=== PATIENT | female | born 1985 | race Hispanic/Latino ===

== ENCOUNTER 2020-10-12 09:00 | Outpatient (RCR) | payer OTHER, MEDICAID, SELFPAY ==
--- NOTE | 2020-09-22 12:33 | PT.OIE ---
Current Diagnoses Cervicalgia (09/22/20) Visit Care Team Role Provider Type Jeni Mendoza MD Attending Provider Non-Staff Primary Care Provider Referring Provider Specialty: Family Practice Address: [address], [place], [address] Email: Physical Therapy Initial Evaluation PT-OP-A Visit Information Start: 09/22/20 12:05 Freq: Status: Active Protocol: Document 09/22/20 12:05 (Rec: 09/22/20 12:33 [email or web address]) Out-Patient Physical Therapy Visit Information Visit Information Visit Type Initial Evaluation Visit Start Time 11:15 Visit Stop Time 12:00 Total Visit Minutes 45 Visit Number 1/ Number of HEAVY EQUIPMENT OPERATOR/PAVER Visits 0 Evaluation Information Evaluation Date 09/22/20 Precautions Precautions Pt is on chemotherapy for her Chronic myeloid leukemia PT-OP-B Current Condition Start: 09/22/20 12:05 Freq: Status: Active Protocol: Document 09/22/20 12:05 (Rec: 09/22/20 12:33 [email or web address]) Current Condition History of Current Condition Onset Date 2 months ago Current Complaints L sided neck pain, radiating pt to midback History of Current Condition Kalee is a 35 yo female here for her new onset of L sided neck pain started 2 months ago . She noticed that she got a lump on L neck and was wondering if that's related to her chemotherapy but her oncologist already ruled out that after ultrasound assessment. Pt reports she has low grade neck pain 2/10, along with occasional radiating pain to below her L scapula and L shoulder. She has difficulty turning her head to L while driving, reading for a long period of time, sleeping on her R side and pressure against that area from the seat belt. Denies tingling, numbness and weakness. She does has night cramps on her L arm and hand occasionally. Besides, pt was diagonsed with Chronic myeloid leukemia 7 months ago and she is currently on Imatinib 400mg for chemotherapy. She is not working at this point d/t her knee injury from 2 years (had othroscopic surgery last year). Current Functional Impairments (Reported) Functional Limitations- ADL's pain with head turns to L while driving, reading for a long period of time Personal Factors Other Personal Factors That May Effect Pt is on chemotherapy for her Therapy/Recovery Chronic myeloid leukemia PT-OP-C Subjective Start: 09/22/20 12:05 Freq: Status: Active Protocol: Document 09/22/20 12:05 (Rec: 09/22/20 12:33 [email or web address]) Patient Questionnaires Neck Disability Index NDI Score 14 Neck Disability Index Impairment 20 to 39% Impaired (Score 10- 19) Quick Dash- Upper Extremity Quick Dash UE Score 11.36 Quick Dash UE Impairment 1 to 19% Impaired (Score 1-19) OP-PT Pain Assessment Location neck pain Pain Location Details L sided parapinals, Intensity 2 Scale Used Numeric (0 - 10) Description Aching,Pinching,Pressure Frequency Frequent Pain Aggravating Factors Position,Changing Position,ADL 's,Activity,Exercise Pain Alleviating Factors Inactivity,Lying Supine PT-OP-F Manual Assessment Start: 09/22/20 12:05 Freq: Status: Active Protocol: Document 09/22/20 12:05 (Rec: 09/22/20 12:33 [email or web address]) Manual Assessments Soft Tissue Assessment Soft Tissue Mobility Assessment hypertonicity noted at L lower cervical parapsinals C5-C7, levator scap and upper trap Joint Mobility Assessment Joint Mobility Assessment hypomobile T/S (T1-T5) angulation at C5 with extension, dowager hump at CT junction PT-OP-H Neuro Start: 09/22/20 12:05 Freq: Status: Active Protocol: Document 09/22/20 12:05 (Rec: 09/22/20 12:33 [email or web address]) Sensation Evaluation Gross Sensation Gross Sensation WNL Deep Tendon Reflex & Clonus Assessment Deep Tendon Reflex Bilateral Bicep Deep Tendon Reflex 2+ Normal Bilateral Tricep Deep Tendon Reflex 2+ Normal Bilateral Brachioradialis Deep Tendon Reflex 2+ Normal PT-OP-J Posture/Palpation/Skin Start: 09/22/20 12:05 Freq: Status: Active Protocol: Document 09/22/20 12:05 (Rec: 09/22/20 12:33 [email or web address]) Posture Evaluation Position Standing Evaluation View Lateral Head/C-Spine Posture Side Bent Left,Forward Head T-Spine Posture Increased Kyphosis PT-OP-K Range of Motion Start: 09/22/20 12:05 Freq: Status: Active Protocol: Document 09/22/20 12:05 (Rec: 09/22/20 12:33 [email or web address]) Cervical Spine Range of Motion Cervical Spine Active Degrees Testing Position Sitting Flexion 55 Extension 65 Rotation Left 45 Rotation Right 58 Lateral Flexion Left 33 Lateral Flexion Right 28 ROM Limitations Soft Tissue Tightness,Muscle Tone,Pain Comments C5C6 pinching pain + radiating scapular pain with extension with overhead pressure, angulation noted. pulling/stretching sensation at Lside during SB to R Lumbar Spine Range of Motion Lumbar Spine Active Degrees Comments WFL PT-OP-L Special Tests Start: 09/22/20 12:05 Freq: Status: Active Protocol: Document 09/22/20 12:05 (Rec: 09/22/20 12:33 [email or web address]) Special Tests Cervical Spine Special Tests Upper Limb Tension Test Test Results -ve Traction Test Results +VE Comments relief noted Spurling's Test Test Results +VE L Comments C5C6 pinching pain + radiating scapular pain Foraminal Compression Test Results +VE L Comments C5C6 pinching pain + radiating scapular pain PT-OP-Q Treatments Start: 09/22/20 12:05 Freq: Status: Active Protocol: Document 09/22/20 12:05 (Rec: 09/22/20 12:33 [email or web address]) Therapeutic Exercises Sitting Exercises levator scap stretch Sitting Exercise Name nose to armpit' Side left Reps/Minutes 10 sec hold x 5 Comments for HEP, Manual Therapy Treatment Manual Traction cervical traction Body Position Hooklying Reps/Duration 10 sec x 5 Comments pt report neck pain relief PT-OP-T Assessment and Plan Start: 09/22/20 12:05 Freq: Status: Active Protocol: Document 09/22/20 12:05 (Rec: 09/22/20 12:33 [email or web address]) Physical Therapy Assessment Rehab Potential Rehabilitation Potential Excellent Evaluation Complexity Number of Personal Factors/Comorbidities 1-2 Number of Body Systems Impaired 1-2 Clinical Presentation at Evaluation Stable Impairments Impairments Activity Tolerance,Balance, Functional Activities, Functional Mobility,Pain, Posture,ROM,Soft Tissue Mobility,Strength Other Concerns Barriers to Rehabilitation Pt is on chemotherapy for her Chronic myeloid leukemia (7 months ) Goals HEP Impairment pt does not have a HEP Short Term Goal (STG) pt will be compliant to complete HEP safely and independently STG Duration 3 weeks activity tolerance Impairment unable to read d/t fatigue and pain Short Term Goal (STG) pt will be show improved neck stability and strength to be able to hold supine deep cervical flexion >20 seconds STG Duration 3 weeks Drawer Upfitter Goal (LTG) pt will be show improved neck stability and strength to be able to hold supine deep cervical flexion >30 seconds, which allows her to read in upright position LTG Duration 6 weeks ROM Impairment pt shows limited cervical AROM d/t pain Short Term Goal (STG) pt will show > 10 degrees of cervical AROM without increase in pain STG Duration 3 weeks Drawer Upfitter Goal (LTG) pt will show > 20 degrees of cervical AROM in all planes without increase in neck pain in order for her to be able to sleep at night and turn while driving LTG Duration 6 weeks Assessment Summary Assessment Kalee is a 35 yo female here for her L sided neck pain. Upon assessment, pt presents symptoms of mild cervical radiculapthy instead of chemotherapy related side effects. I did recommend pt to address her lumps at cervical region with her new oncologist if needed. Upon assessment, pt shows limited thoracic mobility but excessive mobility C5-C7 ( dowager hump and movement angulation) which significantly affects her cervical stability and nerve root pressure. Pt will benefit from skilled therapy to address aforementioned impairments in order for her to function without pain ( driving, sleeping and reading) Physical Therapy Plan Frequency and Duration Frequency of Treatment 1x/Week Duration of Treatment 6 weeks Plan of Care Start Date 09/22/20 Plan of Care End Date 11/06/20 Next Visit Focus/Plan Next Note Type Treatment Note Next Visit Plan traction check stability chest stretch neck stretch chin tuck
--- NOTE | 2020-09-22 12:33 | PT.OPPOC ---
Physical, Occupational & Speech Therapy At [facility] Current Diagnoses Cervicalgia (09/22/20) Visit Care Team Role Provider Type Jeni Mendoza MD Attending Provider Non-Staff Primary Care Provider Referring Provider Specialty: Family Practice Address: [address] , [place], [address] Email: Plan Of Care PT-OP-T Assessment and Plan Start: 09/22/20 12:05 Freq: Status: Active Protocol: Document 09/22/20 12:05 (Rec: 09/22/20 12:33 [email or web address]) Physical Therapy Assessment Rehab Potential Rehabilitation Potential Excellent Evaluation Complexity Number of Personal Factors/Comorbidities 1-2 Number of Body Systems Impaired 1-2 Clinical Presentation at Evaluation Stable Impairments Impairments Activity Tolerance,Balance, Functional Activities, Functional Mobility,Pain, Posture,ROM,Soft Tissue Mobility,Strength Other Concerns Barriers to Rehabilitation Pt is on chemotherapy for her Chronic myeloid leukemia (7 months ) Goals HEP Impairment pt does not have a HEP Short Term Goal (STG) pt will be compliant to complete HEP safely and independently STG Duration 3 weeks activity tolerance Impairment unable to read d/t fatigue and pain Short Term Goal (STG) pt will be show improved neck stability and strength to be able to hold supine deep cervical flexion >20 seconds STG Duration 3 weeks Correction Goal (LTG) pt will be show improved neck stability and strength to be able to hold supine deep cervical flexion >30 seconds, which allows her to read in upright position LTG Duration 6 weeks ROM Impairment pt shows limited cervical AROM d/t pain Short Term Goal (STG) pt will show > 10 degrees of cervical AROM without increase in pain STG Duration 3 weeks Correction Goal (LTG) pt will show > 20 degrees of cervical AROM in all planes without increase in neck pain in order for her to be able to sleep at night and turn while driving LTG Duration 6 weeks Assessment Summary Assessment Kalee is a 35 yo female here for her L sided neck pain. Upon assessment, pt presents symptoms of mild cervical radiculapthy instead of chemotherapy related side effects. I did recommend pt to address her lumps at cervical region with her new oncologist if needed. Upon assessment, pt shows limited thoracic mobility but excessive mobility C5-C7 ( dowager hump and movement angulation) which significantly affects her cervical stability and nerve root pressure. Pt will benefit from skilled therapy to address aforementioned impairments in order for her to function without pain ( driving, sleeping and reading) Physical Therapy Plan Frequency and Duration Frequency of Treatment 1x/Week Duration of Treatment 6 weeks Plan of Care Start Date 09/22/20 Plan of Care End Date 11/06/20 Next Visit Focus/Plan Next Note Type Treatment Note Next Visit Plan traction check stability chest stretch neck stretch chin tuck Plan of Care Dates Plan of Care Start Date 09/22/20 Plan of Care End Date 11/06/20 Electronically Signed by: Georgia Doherty, PT 09/22/20 [id number] Please Sign and Return: I have reviewed this Plan of Care and certify that the skilled therapy services above are required to meet the patient?s needs. Physician Signature Date Printed Name and Credentials Clinical Instructor Signature Printed Name and Credentials
--- NOTE | 2020-09-24 09:51 | PT.OTN ---
Current Diagnoses Cervicalgia (09/24/20) Physical Therapy Treatment Note PT-OP-A Visit Information Start: 09/22/20 12:05 Freq: Status: Active Protocol: Document 09/24/20 09:06 SP (Rec: 09/24/20 11:43 SP [id number]) Out-Patient Physical Therapy Visit Information Visit Information Visit Type Treatment Note Visit Start Time 09:06 Visit Stop Time 09:51 Total Visit Minutes 45 Visit Number 2/9 Number of CAMPGROUND HAND Visits 1 Evaluation Information Evaluation Date 09/22/20 Precautions Precautions Pt is on chemotherapy for her Chronic myeloid leukemia PT-OP-B Current Condition Start: 09/22/20 12:05 Freq: Status: Active Protocol: Document 09/22/20 12:05 HH (Rec: 09/22/20 12:33 HH [email or web address]) Current Condition History of Current Condition Onset Date 2 months ago Current Complaints L sided neck pain, radiating pt to midback History of Current Condition Kalee is a 35 yo female here for her new onset of L sided neck pain started 2 months ago . She noticed that she got a lump on L neck and was wondering if that's related to her chemotherapy but her oncologist already ruled out that after ultrasound assessment. Pt reports she has low grade neck pain 2/10, along with occasional radiating pain to below her L scapula and L shoulder. She has difficulty turning her head to L while driving, reading for a long period of time, sleeping on her R side and pressure against that area from the seat belt. Denies tingling, numbness and weakness. She does has night cramps on her L arm and hand occasionally. Besides, pt was diagonsed with Chronic myeloid leukemia 7 months ago and she is currently on Imatinib 400mg for chemotherapy. She is not working at this point d/t her knee injury from 2 years (had othroscopic surgery last year). Current Functional Impairments (Reported) Functional Limitations- ADL's pain with head turns to L while driving, reading for a long period of time Personal Factors Other Personal Factors That May Effect Pt is on chemotherapy for her Therapy/Recovery Chronic myeloid leukemia PT-OP-C Subjective Start: 09/22/20 12:05 Freq: Status: Active Protocol: Document 09/24/20 09:06 SP (Rec: 09/24/20 11:43 SP [id number]) OP-PT Subjective Patient Comments Patient Comments Pt stated noticed a swollen pocked over L mid to distal clavicle and showed her oncologist but he was not concerned, althought little worried. Pt reported doing ok otherwise, no adverse reactions felt good after last tx. PT-OP-F Manual Assessment Start: 09/22/20 12:05 Freq: Status: Active Protocol: Document 09/22/20 12:05 (Rec: 09/22/20 12:33 [email or web address]) Manual Assessments Soft Tissue Assessment Soft Tissue Mobility Assessment hypertonicity noted at L lower cervical parapsinals C5-C7, levator scap and upper trap Joint Mobility Assessment Joint Mobility Assessment hypomobile T/S (T1-T5) angulation at C5 with extension, dowager hump at CT junction PT-OP-H Neuro Start: 09/22/20 12:05 Freq: Status: Active Protocol: Document 09/22/20 12:05 (Rec: 09/22/20 12:33 [email or web address]) Sensation Evaluation Gross Sensation Gross Sensation WNL Deep Tendon Reflex & Clonus Assessment Deep Tendon Reflex Bilateral Bicep Deep Tendon Reflex 2+ Normal Bilateral Tricep Deep Tendon Reflex 2+ Normal Bilateral Brachioradialis Deep Tendon Reflex 2+ Normal PT-OP-J Posture/Palpation/Skin Start: 09/22/20 12:05 Freq: Status: Active Protocol: Document 09/22/20 12:05 (Rec: 09/22/20 12:33 [email or web address]) Posture Evaluation Position Standing Evaluation View Lateral Head/C-Spine Posture Side Bent Left,Forward Head T-Spine Posture Increased Kyphosis PT-OP-K Range of Motion Start: 09/22/20 12:05 Freq: Status: Active Protocol: Document 09/22/20 12:05 (Rec: 09/22/20 12:33 [email or web address]) Cervical Spine Range of Motion Cervical Spine Active Degrees Testing Position Sitting Flexion 55 Extension 65 Rotation Left 45 Rotation Right 58 Lateral Flexion Left 33 Lateral Flexion Right 28 ROM Limitations Soft Tissue Tightness,Muscle Tone,Pain Comments C5C6 pinching pain + radiating scapular pain with extension with overhead pressure, angulation noted. pulling/stretching sensation at Lside during SB to R Lumbar Spine Range of Motion Lumbar Spine Active Degrees Comments WFL PT-OP-L Special Tests Start: 09/22/20 12:05 Freq: Status: Active Protocol: Document 09/22/20 12:05 HH (Rec: 09/22/20 12:33 HH [email or web address]) Special Tests Cervical Spine Special Tests Upper Limb Tension Test Test Results -ve Traction Test Results +VE Comments relief noted Spurling's Test Test Results +VE L Comments C5C6 pinching pain + radiating scapular pain Foraminal Compression Test Results +VE L Comments C5C6 pinching pain + radiating scapular pain PT-OP-Q Treatments Start: 09/22/20 12:05 Freq: Status: Active Protocol: Document 09/24/20 09:06 SP (Rec: 09/24/20 11:43 SP [id number]) Therapeutic Exercises Supine Exercises TS ext and pec stretch over towel roll Supine Exercise Name arms as side then into ABD 90* stretch, OH reach pain free range Side bilateral Resistance AROM Equipment Used towel roll under Mid TS Reps/Minutes 2 min total Comments good tolerance pain free range scap retraction/ depresion Side bilateral Reps/Minutes 5 sech hold x10 Comments cued slow gentle fluid movement activation DNF Supine Exercise Name chin tuck Reps/Minutes 5 sec hold x10 Comments cued slow gentle fluid movement activation Sidelying Exercises open book Side bilateral Reps/Minutes x5 Comments pinching Lateral neck to stopped- hold for now. Sitting Exercises levator scap stretch Sitting Exercise Name nose to armpit' Side left Reps/Minutes 10 sec hold x 5 Comments reviewed Standing Exercises scalene stretch Standing Exercise Name hand over clavicle, SB opposite side and look toward ceiling pain free rang Side bilateral Resistance added to HEP Reps/Minutes 20 Comments good feedback response, aware caution on L 2* swelling. racquetball roll at wall Standing Exercise Name interscap muscles- added to HEP Equipment Used racquetball in sock Reps/Minutes 1 min Comments good feedback response- this feels good. Manual Therapy Treatment Soft Tissue Mobilization STMs Body Location suboccipitals, lev scap, UT, suboccipital release, SCM Mobilization Type Myofascial Release,Sustained Pressure,Other Intensity/Depth Moderate Body Position Supine Comments Good feedback response it feels good, I might fall asleep. Manual Traction cervical traction Body Position Hooklying Reps/Duration 30 x3 Comments pt report neck pain relief PT-OP-T Assessment and Plan Start: 09/22/20 12:05 Freq: Status: Active Protocol: Document 09/24/20 09:06 SP (Rec: 09/24/20 11:43 SP [id number]) Physical Therapy Assessment Goals HEP Impairment pt does not have a HEP Short Term Goal (STG) pt will be compliant to complete HEP safely and independently STG Duration 3 weeks activity tolerance Impairment unable to read d/t fatigue and pain Short Term Goal (STG) pt will be show improved neck stability and strength to be able to hold supine deep cervical flexion >20 seconds STG Duration 3 weeks Manufacturing Electrician Goal (LTG) pt will be show improved neck stability and strength to be able to hold supine deep cervical flexion >30 seconds, which allows her to read in upright position LTG Duration 6 weeks ROM Impairment pt shows limited cervical AROM d/t pain Short Term Goal (STG) pt will show > 10 degrees of cervical AROM without increase in pain STG Duration 3 weeks [facility] Goal (LTG) pt will show > 20 degrees of cervical AROM in all planes without increase in neck pain in order for her to be able to sleep at night and turn while driving LTG Duration 6 weeks Assessment Summary Assessment Pt tolerated tx well, HEP review and initiated scalene stretch, chin tuck, TS ext and pec stretch over towel roll and STMs racquetball roll inter scap at wall with report little looser. Suggested using CP for swelling at home. Reassess swelling over L mid- distal clavicle next tx. Physical Therapy Plan Frequency and Duration Frequency of Treatment 1x/Week Duration of Treatment 6 weeks Plan of Care Start Date 09/22/20 Plan of Care End Date 11/06/20 Next Visit Focus/Plan Next Note Type Treatment Note Next Visit Plan Assess manual and self STMs, additions to HEP see Assessment. Next tx: add cervical rotations and possible SNAGS w / towel PT POC: traction check stability chest stretch neck stretch chin tuck
--- NOTE | 2020-09-30 13:46 | PT.OTN ---
Current Diagnoses Cervicalgia (09/30/20) Physical Therapy Treatment Note PT-OP-A Visit Information Start: 09/22/20 12:05 Freq: Status: Active Protocol: Document 09/30/20 13:01 (Rec: 09/30/20 13:46 [id number]) Out-Patient Physical Therapy Visit Information Visit Information Visit Type Treatment Note Visit Start Time 13:00 Visit Stop Time 13:53 Total Visit Minutes 53 Visit Number 3/9 Number of LABORER HEADING Visits 0 PT-OP-B Current Condition Start: 09/22/20 12:05 Freq: Status: Active Protocol: Document 09/22/20 12:05 HH (Rec: 09/22/20 12:33 [email or web address]) Current Condition History of Current Condition Onset Date 2 months ago Current Complaints L sided neck pain, radiating pt to midback History of Current Condition Kalee is a 35 yo female here for her new onset of L sided neck pain started 2 months ago . She noticed that she got a lump on L neck and was wondering if that's related to her chemotherapy but her oncologist already ruled out that after ultrasound assessment. Pt reports she has low grade neck pain 2/10, along with occasional radiating pain to below her L scapula and L shoulder. She has difficulty turning her head to L while driving, reading for a long period of time, sleeping on her R side and pressure against that area from the seat belt. Denies tingling, numbness and weakness. She does has night cramps on her L arm and hand occasionally. Besides, pt was diagonsed with Chronic myeloid leukemia 7 months ago and she is currently on Imatinib 400mg for chemotherapy. She is not working at this point d/t her knee injury from 2 years (had othroscopic surgery last year). Current Functional Impairments (Reported) Functional Limitations- ADL's pain with head turns to L while driving, reading for a long period of time Personal Factors Other Personal Factors That May Effect Pt is on chemotherapy for her Therapy/Recovery Chronic myeloid leukemia PT-OP-C Subjective Start: 09/22/20 12:05 Freq: Status: Active Protocol: Document 09/30/20 13:01 (Rec: 09/30/20 13:46 [id number]) OP-PT Subjective Patient Comments Patient Comments Its less painful now and the exercises have been helpful. I still have the pain at the porch area especially with my neck movements PT-OP-F Manual Assessment Start: 09/22/20 12:05 Freq: Status: Active Protocol: Document 09/22/20 12:05 (Rec: 09/22/20 12:33 [email or web address]) Manual Assessments Soft Tissue Assessment Soft Tissue Mobility Assessment hypertonicity noted at L lower cervical parapsinals C5-C7, levator scap and upper trap Joint Mobility Assessment Joint Mobility Assessment hypomobile T/S (T1-T5) angulation at C5 with extension, dowager hump at CT junction PT-OP-H Neuro Start: 09/22/20 12:05 Freq: Status: Active Protocol: Document 09/22/20 12:05 (Rec: 09/22/20 12:33 [email or web address]) Sensation Evaluation Gross Sensation Gross Sensation WNL Deep Tendon Reflex & Clonus Assessment Deep Tendon Reflex Bilateral Bicep Deep Tendon Reflex 2+ Normal Bilateral Tricep Deep Tendon Reflex 2+ Normal Bilateral Brachioradialis Deep Tendon Reflex 2+ Normal PT-OP-J Posture/Palpation/Skin Start: 09/22/20 12:05 Freq: Status: Active Protocol: Document 09/22/20 12:05 (Rec: 09/22/20 12:33 [email or web address]) Posture Evaluation Position Standing Evaluation View Lateral Head/C-Spine Posture Side Bent Left,Forward Head T-Spine Posture Increased Kyphosis PT-OP-K Range of Motion Start: 09/22/20 12:05 Freq: Status: Active Protocol: Document 09/22/20 12:05 (Rec: 09/22/20 12:33 [email or web address]) Cervical Spine Range of Motion Cervical Spine Active Degrees Testing Position Sitting Flexion 55 Extension 65 Rotation Left 45 Rotation Right 58 Lateral Flexion Left 33 Lateral Flexion Right 28 ROM Limitations Soft Tissue Tightness,Muscle Tone,Pain Comments C5C6 pinching pain + radiating scapular pain with extension with overhead pressure, angulation noted. pulling/stretching sensation at Lside during SB to R Lumbar Spine Range of Motion Lumbar Spine Active Degrees Comments WFL PT-OP-L Special Tests Start: 09/22/20 12:05 Freq: Status: Active Protocol: Document 09/22/20 12:05 (Rec: 09/22/20 12:33 [email or web address]) Special Tests Cervical Spine Special Tests Upper Limb Tension Test Test Results -ve Traction Test Results +VE Comments relief noted Spurling's Test Test Results +VE L Comments C5C6 pinching pain + radiating scapular pain Foraminal Compression Test Results +VE L Comments C5C6 pinching pain + radiating scapular pain PT-OP-Q Treatments Start: 09/22/20 12:05 Freq: Status: Active Protocol: Document 09/30/20 13:01 (Rec: 09/30/20 13:46 [email or web address]) Therapeutic Exercises Supine Exercises TS ext and pec stretch over towel roll Supine Exercise Name static stretch then snow solange Side bilateral Resistance AROM Equipment Used with foam roller today Reps/Minutes 6 mins Comments good tolerance pain free range scap retraction/ depresion Supine Exercise Name slight discomfort at neck Side bilateral Reps/Minutes 5 sech hold x10 Comments cued slow gentle fluid movement activation DNF Supine Exercise Name chin tuck Reps/Minutes 5 sec hold x10 Comments cued slow gentle fluid movement activation Sitting Exercises levator scap stretch Sitting Exercise Name nose to armpit' Side left Reps/Minutes 10 sec hold x 5 Comments reviewed Standing Exercises scalene stretch Standing Exercise Name hand over clavicle, SB opposite side and look toward ceiling pain free rang Side bilateral Resistance added to HEP Reps/Minutes 20 Comments good feedback response, aware caution on L 2* swelling. Manual Therapy Treatment Soft Tissue Mobilization STMs Body Location suboccipitals, lev scap, UT, suboccipital release, SCM Mobilization Type Myofascial Release,Sustained Pressure,Other Intensity/Depth Moderate Body Position Supine Comments reduced tonicty noted today Manual Traction cervical traction Body Position Hooklying Reps/Duration 30 x3 Comments pt report neck pain relief PT-OP-R Modalities Start: 09/22/20 12:05 Freq: Status: Active Protocol: Document 09/30/20 13:01 (Rec: 09/30/20 13:46 [id number]) Hot Pack/Cold Pack Treatment Hot Pack Location c/s Patient Position Supine Treatment Duration (minutes) 15 Patient Tolerance Good PT-OP-T Assessment and Plan Start: 09/22/20 12:05 Freq: Status: Active Protocol: Document 09/30/20 13:01 (Rec: 09/30/20 13:46 [id number]) Physical Therapy Assessment Goals HEP Impairment pt does not have a HEP Short Term Goal (STG) pt will be compliant to complete HEP safely and independently STG Duration 3 weeks activity tolerance Impairment unable to read d/t fatigue and pain Short Term Goal (STG) pt will be show improved neck stability and strength to be able to hold supine deep cervical flexion >20 seconds STG Duration 3 weeks Client Services Associate Goal (LTG) pt will be show improved neck stability and strength to be able to hold supine deep cervical flexion >30 seconds, which allows her to read in upright position LTG Duration 6 weeks ROM Impairment pt shows limited cervical AROM d/t pain Short Term Goal (STG) pt will show > 10 degrees of cervical AROM without increase in pain STG Duration 3 weeks Client Services Associate Goal (LTG) pt will show > 20 degrees of cervical AROM in all planes without increase in neck pain in order for her to be able to sleep at night and turn while driving LTG Duration 6 weeks Assessment Summary Assessment pt reports improved radiating pain to L scap and less tonicty at cervical paraspinals, but she consistently has pain originated from 2 of her swollen spots primarily with neck movements. Will closely monitor her symptoms and possibly report to her oncologist if symptoms persist . Physical Therapy Plan Frequency and Duration Frequency of Treatment 1x/Week Duration of Treatment 6 weeks Plan of Care Start Date 09/22/20 Plan of Care End Date 11/06/20 Next Visit Focus/Plan Next Note Type Treatment Note Next Visit Plan Assess manual and self STMs, additions to HEP see Assessment. Next tx: add cervical rotations and possible SNAGS w / towel PT POC: traction check stability chest stretch neck stretch chin tuck
--- NOTE | 2020-10-05 17:18 | PT.OTN ---
Current Diagnoses Cervicalgia (10/05/20) Physical Therapy Treatment Note PT-OP-A Visit Information Start: 09/22/20 12:05 Freq: Status: Active Protocol: Document 10/05/20 17:12 OF (Rec: 10/05/20 17:18 OF [id number]) Out-Patient Physical Therapy Visit Information Visit Information Visit Type Treatment Note Visit Start Time 16:41 Visit Stop Time 17:12 Total Visit Minutes 31 Visit Number 4/ Evaluation Information Evaluation Date 09/22/20 PT-OP-B Current Condition Start: 09/22/20 12:05 Freq: Status: Active Protocol: Document 09/22/20 12:05 HH (Rec: 09/22/20 12:33 HH [email or web address]) Current Condition History of Current Condition Onset Date 2 months ago Current Complaints L sided neck pain, radiating pt to midback History of Current Condition Kalee is a 35 yo female here for her new onset of L sided neck pain started 2 months ago . She noticed that she got a lump on L neck and was wondering if that's related to her chemotherapy but her oncologist already ruled out that after ultrasound assessment. Pt reports she has low grade neck pain 2/10, along with occasional radiating pain to below her L scapula and L shoulder. She has difficulty turning her head to L while driving, reading for a long period of time, sleeping on her R side and pressure against that area from the seat belt. Denies tingling, numbness and weakness. She does has night cramps on her L arm and hand occasionally. Besides, pt was diagonsed with Chronic myeloid leukemia 7 months ago and she is currently on Imatinib 400mg for chemotherapy. She is not working at this point d/t her knee injury from 2 years (had othroscopic surgery last year). Current Functional Impairments (Reported) Functional Limitations- ADL's pain with head turns to L while driving, reading for a long period of time Personal Factors Other Personal Factors That May Effect Pt is on chemotherapy for her Therapy/Recovery Chronic myeloid leukemia PT-OP-C Subjective Start: 09/22/20 12:05 Freq: Status: Active Protocol: Document 10/05/20 17:12 OF (Rec: 10/05/20 17:18 OF [id number]) OP-PT Subjective Patient Comments Patient Comments Pt states she was sore after last tx, headache on L lateral and c spine Patient Reported Progress Same OP-PT Pain Assessment Pain Assessment Grid Paper Pain Assessment Grid Completed No Location neck pain Pain Location Details L sided parapinals, Intensity 4 Scale Used Numeric (0 - 10) Description Aching,Pinching,Pressure,Spasm Frequency Frequent Pain Aggravating Factors Position,Changing Position,ADL 's,Activity,Exercise Pain Alleviating Factors Cold,Inactivity,Lying Supine PT-OP-F Manual Assessment Start: 09/22/20 12:05 Freq: Status: Active Protocol: Document 09/22/20 12:05 (Rec: 09/22/20 12:33 [email or web address]) Manual Assessments Soft Tissue Assessment Soft Tissue Mobility Assessment hypertonicity noted at L lower cervical parapsinals C5-C7, levator scap and upper trap Joint Mobility Assessment Joint Mobility Assessment hypomobile T/S (T1-T5) angulation at C5 with extension, dowager hump at CT junction PT-OP-H Neuro Start: 09/22/20 12:05 Freq: Status: Active Protocol: Document 09/22/20 12:05 (Rec: 09/22/20 12:33 [email or web address]) Sensation Evaluation Gross Sensation Gross Sensation WNL Deep Tendon Reflex & Clonus Assessment Deep Tendon Reflex Bilateral Bicep Deep Tendon Reflex 2+ Normal Bilateral Tricep Deep Tendon Reflex 2+ Normal Bilateral Brachioradialis Deep Tendon Reflex 2+ Normal PT-OP-J Posture/Palpation/Skin Start: 09/22/20 12:05 Freq: Status: Active Protocol: Document 09/22/20 12:05 (Rec: 09/22/20 12:33 [email or web address]) Posture Evaluation Position Standing Evaluation View Lateral Head/C-Spine Posture Side Bent Left,Forward Head T-Spine Posture Increased Kyphosis PT-OP-K Range of Motion Start: 09/22/20 12:05 Freq: Status: Active Protocol: Document 09/22/20 12:05 (Rec: 09/22/20 12:33 [email or web address]) Cervical Spine Range of Motion Cervical Spine Active Degrees Testing Position Sitting Flexion 55 Extension 65 Rotation Left 45 Rotation Right 58 Lateral Flexion Left 33 Lateral Flexion Right 28 ROM Limitations Soft Tissue Tightness,Muscle Tone,Pain Comments C5C6 pinching pain + radiating scapular pain with extension with overhead pressure, angulation noted. pulling/stretching sensation at Lside during SB to R Lumbar Spine Range of Motion Lumbar Spine Active Degrees Comments WFL PT-OP-L Special Tests Start: 09/22/20 12:05 Freq: Status: Active Protocol: Document 09/22/20 12:05 (Rec: 09/22/20 12:33 HH [email or web address]) Special Tests Cervical Spine Special Tests Upper Limb Tension Test Test Results -ve Traction Test Results +VE Comments relief noted Spurling's Test Test Results +VE L Comments C5C6 pinching pain + radiating scapular pain Foraminal Compression Test Results +VE L Comments C5C6 pinching pain + radiating scapular pain PT-OP-Q Treatments Start: 09/22/20 12:05 Freq: Status: Active Protocol: Document 10/05/20 17:12 OF (Rec: 10/05/20 17:18 OF [id number]) Therapeutic Exercises Supine Exercises TS ext and pec stretch over towel roll Supine Exercise Name static stretch then snow solange Side bilateral Resistance AROM Equipment Used with foam roller today Reps/Minutes 2x2min Comments pain at end range scap retraction/ depresion Supine Exercise Name slight discomfort at neck Side bilateral Reps/Minutes 5 sech hold x10 Comments cued slow gentle fluid movement activation DNF Supine Exercise Name chin tuck Reps/Minutes 5 sec hold x10 Comments cued for DNF recruitment, relaxing SCM Sitting Exercises scalene stretch Comments single rep due to increased pain levator scap stretch Sitting Exercise Name nose to armpit' Side left Reps/Minutes 10 sec hold x 5 Comments reviewed Manual Therapy Treatment Soft Tissue Mobilization STMs Body Location suboccipitals, lev scap, UT, suboccipital release, SCM Mobilization Type Myofascial Release,Sustained Pressure,Other Intensity/Depth Moderate Body Position Supine Comments reduced tonicty noted today, pt reports pain after 3rd bout of 2min Self-Care/Home Management Treatment Education Patient Education Body Mechanics,Home Exercise Program,Pain Management PT-OP-R Modalities Start: 09/22/20 12:05 Freq: Status: Active Protocol: Document 09/30/20 13:01 HH (Rec: 09/30/20 13:46 HH [id number]) Hot Pack/Cold Pack Treatment Hot Pack Location c/s Patient Position Supine Treatment Duration (minutes) 15 Patient Tolerance Good PT-OP-T Assessment and Plan Start: 09/22/20 12:05 Freq: Status: Active Protocol: Document 10/05/20 17:12 OF (Rec: 10/05/20 17:18 OF [id number]) Physical Therapy Assessment Rehab Potential Rehabilitation Potential Good Evaluation Complexity Number of Personal Factors/Comorbidities 1-2 Number of Body Systems Impaired 1-2 Clinical Presentation at Evaluation Evolving Impairments Impairments Pain,Soft Tissue Mobility, Strength Progress Towards Goals Progress Towards Goals Slow Progress due to Medical Issues Assessment Summary Assessment pt reports increased pain after last tx, pain during todays tx, limited AROM, difficulty with therex. Ice pack x10min to L trap/cervical area
--- NOTE | 2020-10-12 09:43 | PT.OTN ---
Current Diagnoses Cervicalgia (10/12/20) Physical Therapy Treatment Note PT-OP-A Visit Information Start: 09/22/20 12:05 Freq: Status: Active Protocol: Document 10/12/20 09:36 OF (Rec: 10/12/20 09:43 OF [email or web address]) Out-Patient Physical Therapy Visit Information Visit Information Visit Type Treatment Note Visit Start Time 09:03 Visit Stop Time 09:35 Total Visit Minutes 32 Visit Number 5/ Evaluation Information Evaluation Date 09/22/20 Precautions Precautions Pt is on chemotherapy for her Chronic myeloid leukemia PT-OP-B Current Condition Start: 09/22/20 12:05 Freq: Status: Active Protocol: Document 09/22/20 12:05 HH (Rec: 09/22/20 12:33 HH [email or web address]) Current Condition History of Current Condition Onset Date 2 months ago Current Complaints L sided neck pain, radiating pt to midback History of Current Condition Kalee is a 35 yo female here for her new onset of L sided neck pain started 2 months ago . She noticed that she got a lump on L neck and was wondering if that's related to her chemotherapy but her oncologist already ruled out that after ultrasound assessment. Pt reports she has low grade neck pain 2/10, along with occasional radiating pain to below her L scapula and L shoulder. She has difficulty turning her head to L while driving, reading for a long period of time, sleeping on her R side and pressure against that area from the seat belt. Denies tingling, numbness and weakness. She does has night cramps on her L arm and hand occasionally. Besides, pt was diagonsed with Chronic myeloid leukemia 7 months ago and she is currently on Imatinib 400mg for chemotherapy. She is not working at this point d/t her knee injury from 2 years (had othroscopic surgery last year). Current Functional Impairments (Reported) Functional Limitations- ADL's pain with head turns to L while driving, reading for a long period of time Personal Factors Other Personal Factors That May Effect Pt is on chemotherapy for her Therapy/Recovery Chronic myeloid leukemia PT-OP-C Subjective Start: 09/22/20 12:05 Freq: Status: Active Protocol: Document 10/12/20 09:36 OF (Rec: 10/12/20 09:43 OF [email or web address]) OP-PT Subjective Patient Comments Patient Comments Pt states she has felt better since last tx, performing HEP as instructed, difficulty driving due to L sided neck pain Patient Reported Progress Improving OP-PT Pain Assessment Pain Assessment Grid Paper Pain Assessment Grid Completed No Location neck pain Pain Location Details L sided parapinals, Intensity 2 Scale Used Numeric (0 - 10) Description Aching,Pinching,Pressure,Spasm Frequency Frequent Pain Aggravating Factors Position,Changing Position,ADL 's,Activity,Exercise Pain Alleviating Factors Cold,Inactivity,Lying Supine PT-OP-F Manual Assessment Start: 09/22/20 12:05 Freq: Status: Active Protocol: Document 09/22/20 12:05 (Rec: 09/22/20 12:33 [email or web address]) Manual Assessments Soft Tissue Assessment Soft Tissue Mobility Assessment hypertonicity noted at L lower cervical parapsinals C5-C7, levator scap and upper trap Joint Mobility Assessment Joint Mobility Assessment hypomobile T/S (T1-T5) angulation at C5 with extension, dowager hump at CT junction PT-OP-H Neuro Start: 09/22/20 12:05 Freq: Status: Active Protocol: Document 09/22/20 12:05 (Rec: 09/22/20 12:33 [email or web address]) Sensation Evaluation Gross Sensation Gross Sensation WNL Deep Tendon Reflex & Clonus Assessment Deep Tendon Reflex Bilateral Bicep Deep Tendon Reflex 2+ Normal Bilateral Tricep Deep Tendon Reflex 2+ Normal Bilateral Brachioradialis Deep Tendon Reflex 2+ Normal PT-OP-J Posture/Palpation/Skin Start: 09/22/20 12:05 Freq: Status: Active Protocol: Document 09/22/20 12:05 (Rec: 09/22/20 12:33 [email or web address]) Posture Evaluation Position Standing Evaluation View Lateral Head/C-Spine Posture Side Bent Left,Forward Head T-Spine Posture Increased Kyphosis PT-OP-K Range of Motion Start: 09/22/20 12:05 Freq: Status: Active Protocol: Document 09/22/20 12:05 (Rec: 09/22/20 12:33 [email or web address]) Cervical Spine Range of Motion Cervical Spine Active Degrees Testing Position Sitting Flexion 55 Extension 65 Rotation Left 45 Rotation Right 58 Lateral Flexion Left 33 Lateral Flexion Right 28 ROM Limitations Soft Tissue Tightness,Muscle Tone,Pain Comments C5C6 pinching pain + radiating scapular pain with extension with overhead pressure, angulation noted. pulling/stretching sensation at Lside during SB to R Lumbar Spine Range of Motion Lumbar Spine Active Degrees Comments WFL PT-OP-L Special Tests Start: 09/22/20 12:05 Freq: Status: Active Protocol: Document 09/22/20 12:05 HH (Rec: 09/22/20 12:33 HH [email or web address]) Special Tests Cervical Spine Special Tests Upper Limb Tension Test Test Results -ve Traction Test Results +VE Comments relief noted Spurling's Test Test Results +VE L Comments C5C6 pinching pain + radiating scapular pain Foraminal Compression Test Results +VE L Comments C5C6 pinching pain + radiating scapular pain PT-OP-Q Treatments Start: 09/22/20 12:05 Freq: Status: Active Protocol: Document 10/12/20 09:36 OF (Rec: 10/12/20 09:43 OF [email or web address]) Therapeutic Exercises Supine Exercises TS ext and pec stretch over towel roll Supine Exercise Name static stretch then snow solange Side bilateral Resistance AROM Equipment Used towel roll Reps/Minutes [id number] Comments pain at end range scap retraction/ depresion Supine Exercise Name slight discomfort at neck Side bilateral Comments demo for increasing ROM DNF Supine Exercise Name chin tuck Reps/Minutes 5 sec hold x10 Comments cued for DNF recruitment, relaxing SCM, seated improves DNF recruitment Sitting Exercises scalene stretch Comments 3x5sec levator scap stretch Sitting Exercise Name nose to armpit' Side left Reps/Minutes 10 sec hold x 5 Comments reviewed Standing Exercises standing rows Side bilateral Resistance level 2 tb Reps/Minutes 2x10 Comments pt agreeable to performing 3x10 at home Manual Therapy Treatment Soft Tissue Mobilization STMs Body Location suboccipitals, lev scap, UT, suboccipital release, SCM Mobilization Type Myofascial Release,Sustained Pressure,Other Intensity/Depth Moderate Body Position Supine Comments pt demonstrates improve AAROM today after STM for c spine Manual Traction cervical traction Body Position Hooklying Reps/Duration 30 x3 Comments pt report neck pain relief Self-Care/Home Management Treatment Education Patient Education Body Mechanics,Home Exercise Program,Pain Management PT-OP-R Modalities Start: 09/22/20 12:05 Freq: Status: Active Protocol: Document 09/30/20 13:01 HH (Rec: 09/30/20 13:46 HH [id number]) Hot Pack/Cold Pack Treatment Hot Pack Location c/s Patient Position Supine Treatment Duration (minutes) 15 Patient Tolerance Good PT-OP-T Assessment and Plan Start: 09/22/20 12:05 Freq: Status: Active Protocol: Document 10/12/20 09:36 OF (Rec: 10/12/20 09:43 OF [email or web address]) Physical Therapy Assessment Rehab Potential Rehabilitation Potential Good Evaluation Complexity Number of Personal Factors/Comorbidities 1-2 Number of Body Systems Impaired 1-2 Clinical Presentation at Evaluation Stable Impairments Impairments Pain,ROM,Strength Progress Towards Goals Progress Towards Goals Progressing Toward Goals Assessment Summary Assessment Pt demonstrates good HEP awareness, improved AAROM after manual tx. She is agreeable to progressing HEP. She will require continued intervention to improve c spine ROM, reduce pain Physical Therapy Plan Next Visit Focus/Plan Next Note Type Treatment Note Next Visit Plan Assess manual and self STMs, additions to HEP possible SNAGS w/ towel chest stretch neck stretch chin tuck
--- NOTE | 2020-10-19 11:05 | PT-OP ANOTE ---
Pt no call, no show
--- NOTE | 2020-12-16 13:25 | PT.OPDS ---
Current Diagnoses Cervicalgia (10/12/20) Visit Care Team Role Provider Type Jeni Mendoza MD Attending Provider Non-Staff Primary Care Provider Referring Provider Specialty: Family Practice Address: [address] [place], [place] [address]jonel [place], [place], [address] Email: Visit Number Visit Number 08/29 Discharge Summary PT-OP-T Assessment and Plan Start: 09/22/20 12:05 Freq: Status: Active Protocol: Document 12/16/20 13:24 (Rec: 12/16/20 13:25 [email or web address]) Physical Therapy Plan Discharge Physical Therapy Discharge Reasons No Longer Attending PT Discharge Comments pt has multiple cxl and no show for her last appt. She is no longer attending PT. DC from PT today
== END 2020-12-16 14:53 | disposition home or self-care (01) ==
LOC: PHYS 09:00
PROVIDERS: PCP Family Medicine; Referring Provider Family Medicine; Visit Provider Family Medicine
DX: M54.2 Cervicalgia (principal)
CPT/HCPCS: 97110; 97140; 97161